=== PATIENT | male | born 1955 | race Two or more races ===

== ENCOUNTER 2024-07-29 09:32 | Outpatient (AMB) | payer OTHER, SELFPAY ==
[2024-07-29 09:47] VITALS: BP 134/84; PULSE 77; RESP 19; TEMP 36.7; O2SAT 96; BMI 44.4
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
== END 2024-07-29 10:02 | disposition home or self-care (01) ==
LOC: HODSRG 09:32
PROVIDERS: PCP Internal Medicine; Referring Provider Internal Medicine; Supervising Provider Surgery; Visit Provider Surgery
DX: K64.4 Residual hemorrhoidal skin tags (principal)
CPT/HCPCS: 99213; G0463

== ENCOUNTER 2025-04-21 14:09 | Outpatient (AMB) | payer BC, SELFPAY ==
[2025-04-21 14:16] VITALS: BP 130/85; PULSE 84; RESP 20; TEMP 36.3; O2SAT 95; BMI 43.9
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
== END 2025-04-21 14:43 | disposition home or self-care (01) ==
LOC: HODSRG 14:09
PROVIDERS: PCP Internal Medicine; Referring Provider Internal Medicine; Supervising Provider Surgery; Visit Provider Surgery
DX: K64.4 Residual hemorrhoidal skin tags (principal); K64.8 Other hemorrhoids; N40.0 Benign prostatic hyperplasia without lower urinary tract symptoms; I10 Essential (primary) hypertension
CPT/HCPCS: 99213; G0463